=== PATIENT | male | born 1945 | race Caucasian/White ===

== ENCOUNTER 2017-01-22 07:43 | Day surgery (SDC) | payer MEDICARE ==
[~2017-01-22] VITALS: Ht 170.2 cm; Wt 75.0 kg
[~2017-01-22 07:43] MED LIST: ASPI81TA2 PO; CYAN10008 PO; DEXT350P5 PO; FINA1TAB17 PO; NIAC250C2 PO; OMEP20TA86 PO; SMV40T PO; Sodium Chloride LOK Flush 10 mL Syringe IV PRN; TEN25 PO; fentaNYL-PF 50 mCg/mL 2 mL Inj IVPUSH PRN
[2017-01-22] MEDS ORDERED: ASPI-973 PO (08:04)
[2017-01-22] MEDS ORDERED: OMEP20CA11 PO (08:04)
[2017-01-22] MEDS ORDERED: ATEN25TA PO (08:04)
[2017-01-22] MEDS ORDERED: OXYC-474 PO (08:04)
[2017-01-22 08:05] VITALS: BP 123/77; PULSE 71; RESP 14; O2SAT 95
[2017-01-22] MEDS: 0.9% Sodium Chloride 1,000 ML IV SCH ×2 (08:13→08:35)
--- NOTE | 2017-01-22 08:39 | PCM.ENDEGD ---
EGD Date of Service: Jan 22, 2017 Physician Lio Jay MD Pre Procedure Diagnosis: Dysphagia Post Procedure Dx & Findings: Irregular Z line at one spot and gastritis Procedure Esophagogastroduodenoscopy PROCEDURE IN DETAIL: After proper sedation, Olympus video endoscope was inserted into patient's mouth and esophagus was successfully intubated. Scope introduced esophagus. Esophagus showed normal shiny whitish mucosa consistent with squamous cell component. Z line was intact overall at 42 cm from the incisors. However there was one spot that appeared irregular and slightly above the Z line. This was biopsied. Scope advanced to the stomach. Overall the stomach appeared normal however the antrum shows slight edema and redness consistent with mild gastritis. Biopsies obtained. Cardia fundus body antrum pylorus were all visualized. Retroflexion was done. Stomach was easily inflated and deflatable using air. Scope further events to the distal duodenum. Duodenum revealed normal villous structures with normal appearing folds without any mass ulcer erosion. During the procedure, we saw a 30 second spasm of the esophagus. Impression Gastritis Irregular Z line Dysphagia - esophageal spasm Recommendation Await biopsy Esophageal manometry Presedation Assessment Risks and Benefits Informed consent was obtained from the patient after all risks and benefits including but not limited to drug reaction, infection, pain, bleeding, perforation, as well as alternatives were discussed. Patient monitoring Continuous pulse oximetry, cardiac monitoring, blood pressure monitoring, IV access, and oxygen at 2L per nasal cannula. Periprocedural Fentanyl: Fentanyl 125mcg Incrementally Midazolam: Midazolam 6mg Incrementally Complications There were no periprocedural complications identified. Post Procedure Plan Post Procedure Recommendations 1. Restrict activities today. 2. Resume normal activities in the morning. 3. Resume medications. 4. GERD behavioral modification: - Avoid fatty, acidic, spicy, large meals - Do not lie down after meals - Do not eat or drink anything for at least 2 1/2 hours before going to bed at night - Discontinue tobacco and alcohol - Decrease or avoid caffeine - Avoid chocolate and mints - Decrease weight - Avoid aspirin and non steroidal anti-inflammatory agents (NSAID) such as Aleve, Advil, Mobic, Naproxen, Ibuprofen, etc 5. Add proton pump inhibitor. Take 30 minutes before 1st meal of the day. 6. Patient informed of normal post procedure side effects as bloating, drowsiness, blood streaking in the stool 7. If gastric biopsy reveal H.pylori, continue with appropriate treatment 8. If small bowel biopsy reveals celiac, continue with appropriate treatment 9. Please don't hesitate to call me with any questions Lio Jay MD Jan 22, 2017 08:39
[2017-01-22 08:40] VITALS: BP 138/78; PULSE 62; RESP 16; O2SAT 96
[2017-01-22 08:50] VITALS: BP 115/69; PULSE 57; RESP 16; O2SAT 93
[2017-01-22 09:00] VITALS: BP 112/67; PULSE 52; RESP 16; O2SAT 94
--- NOTE | 2017-01-23 14:09 | PATH ---
SURGICAL PATHOLOGY Attending Physician:Lio Jay M.D. CASE STATUS: Signed Out PATIENT NAME: CHUCK WARD PID: [id number] : 1945 DATE COLLECTED:01/22/2017 15:55 SPECIMEN: 1: Stomach, Antrum, Biopsy 2: Esophagus, Biopsy CLINICAL HISTORY: 1. ANTRUM BIOPSY 2. DISTAL ESOPHAGUS BIOPSY FINAL DIAGNOSIS: 1.ANTRUM BIOPSY: FOCAL MILD CHRONIC GASTRITIS INVOLVING ANTRAL MUCOSA. Negative for evidence of Helicobacter. Negative for intestinal metaplasia. Negative for dysplasia and malignancy. 2.DISTAL ESOPHAGUS BIOPSY: SQUAMOUS MUCOSA AND GASTRIC CARDIA-TYPE MUCOSA, NEGATIVE FOR SPECIALIZED METAPLASIA OF THURMAN' S-TYPE ESOPHAGUS. Negative for dysplasia and malignancy. Negative for squamous intraepithelial eosinophils. ICD10 K29.70 GROSS DESCRIPTION: The specimen is received in two formalin filled containers labeled with the patient's name. 1). The specimen is sublabeled "antrum" and consists of 2 portions of tissue which aggregate to 0.4 x 0.4 x 0.3 CM. The specimen is entirely submitted in cassette 1A. 2). The specimen is sublabeled "distal esophagus" and consists of 2 portions of tissue which aggregate to 0.3 x 0.2 x 0.2 CM. The specimen is entirely submitted in cassette 2A. 01/22/2017 [facility] MICRO DESCRIPTION: See diagnosis. ICD-9 CODES: CPT CODES: 1: 88215 2: 37423 Electronically Signed Out Yefri Odom MD [facility] [address], [place] [address] Technical component performed at [facility], [facility] [address], [place], [address]
== END 2017-01-22 23:59 | disposition home or self-care (01) ==
LOC: END 07:43
PROVIDERS: ATTEND Internal Medicine
DX: K29.50 Unspecified chronic gastritis without bleeding (principal); R13.10 Dysphagia, unspecified; I10 Essential (primary) hypertension; I25.10 Atherosclerotic heart disease of native coronary artery without angina pectoris; E78.2 Mixed hyperlipidemia; E78.00 Pure hypercholesterolemia, unspecified; I25.2 Old myocardial infarction; Z79.82 Long term (current) use of aspirin
CPT/HCPCS: 43239; G0500; J7030

== ENCOUNTER 2017-03-24 09:53 | Day surgery (SDC) | payer MEDICARE ==
[~2017-03-24 09:53] MED LIST changes: +ASPI-973 PO; -ASPI81TA2 PO; +ATEN25TA PO; -NIAC250C2 PO; +OMEP20CA11 PO; -OMEP20TA86 PO; +OXYC-474 PO; -Sodium Chloride LOK Flush 10 mL Syringe IV PRN; -TEN25 PO; -fentaNYL-PF 50 mCg/mL 2 mL Inj IVPUSH PRN
[2017-03-24] MEDS ORDERED: Lidocaine Topical 2% 30 mL Jelly ONE (10:10)
== END 2017-03-24 23:59 | disposition home or self-care (01) ==
LOC: END 09:53
PROVIDERS: ATTEND Internal Medicine
DX: R13.10 Dysphagia, unspecified (principal)